=== PATIENT | male | born 1955 | race Caucasian/White ===

== ENCOUNTER 2022-11-25 14:09 | Emergency (ER) | payer OTHER, SELFPAY ==
--- NOTE | ~2022-11-25 | XR_ITS ---
EXAMINATION: XR CHEST CLINICAL INFORMATION: Coughing. Pneumonia? COMPARISON: None TECHNIQUE: Frontal view of the chest was obtained. FINDINGS: Diffuse coarse interstitial opacity. No focal consolidation or mass. No pleural effusion or pneumothorax. Suture anchors in both humeral heads. XR/XR chest 1V IMPRESSION: Diffuse coarse interstitial opacity. This could be seen from pulmonary edema, bronchitis, interstitial pneumonitis, pulmonary fibrosis, or other etiologies.
[2022-11-25 14:22] VITALS: BP 99/60; PULSE 110; RESP 18; TEMP 37.2; O2SAT 95; BMI 22.6
--- NOTE | 2022-11-25 14:25 | ECG_ITS ---
Test Reason : SOB Blood Pressure : / mmHG Vent. Rate : 102 BPM Atrial Rate : 102 BPM P-R Int : 148 ms QRS Dur : 080 ms QT Int : 326 ms P-R-T Axes : 040 029 033 degrees QTc Int : 424 ms Sinus tachycardia Otherwise normal ECG No previous ECGs available Referred By: Jorge Tejeda Electronically Signed By:KAROLYN RUDD MD
--- NOTE | 2022-11-25 14:26 | ED_ITS ---
HPI - General Adult General Chief complaint: Upper Respiratory Symptoms <LEXII Young - Last Filed: 11/25/22 18:35> Stated complaint: Cough/Difficulty breathing <LEXII Young - Last Filed: 11/25/22 18:35> Time Seen by Provider: 11/25/22 14:57 <LEXII Young - Last Filed: 11/25/22 18:35> Source: patient, family and biochemistry technologist <Julianna Nelson NP - Last Filed: 11/25/22 17:19> Mode of arrival: ambulatory <Julianna Nelson NP - Last Filed: 11/25/22 17:19> Limitations: language barrier <Julianna Nelson NP - Last Filed: 11/25/22 17:19> History of Present Illness HPI narrative: This is a 67-year-old male with a past medical history of pulmonary fi brosis, hypertension who presents to the emergency room with complaint of 5 days of coughing congestion. Patient reports he initially had 3 days of tactile temps and chills. These have resolved. He is here because he has continued cough and congestion. He was supposed to go back to [place] but felt like he was to sick to get on the plane to go home. He does report some wheezing and shortness of breath with exertion. No chest pain, leg swelling, leg pain. No history DVT or PE. Patient denies any sick contact <Julianna Nelson NP - Last Filed: 11/25/22 17:19> Related Data Home medications: Previous Rx's Medication Instructions Recorded doxycycline monohydrate 100 mg 100 mg PO BID #14 caps 11/25/22 capsule prednisone 20 mg tablet 40 mg PO DAILY #8 tabs 11/25/22 <LEXII Young - Last Filed: 11/25/22 18:35> Allergies/adverse reactions: Allergies Allergy/AdvReac Type Severity Reaction Status Date / Time No Known Allergies Allergy Verified 11/25/22 14:22 <LEXII Young - Last Filed: 11/25/22 18:35> Review of Systems Review of Systems: Yes all other systems are reviewed and are negative <JANAE Hunt Last Filed: 11/25/22 17:19> Constitutional: Constitutional: Reports no additional constitutional complaints, Denies body ache(s), Denies chills, Reports fever(s), Denies headache(s) and Denies weakness <Julianna Nelson NURSE SUBSTANCE ABUSE - Last Filed: 11/25/22 17:19> Eyes: Eyes: Reports no additional eye complaints and Denies change in vision <Julianna Nelson NURSE SUBSTANCE ABUSE - Last Filed: 11/25/22 17:19> ENT: Reports system reviewed and no additional complaints, except as documented, Denies dizziness, Denies headache(s), Denies nasal congestion, Denies nasal discharge and Denies neck pain <Julianna Nelson NURSE SUBSTANCE ABUSE - Last Filed: 11/25/22 17:19> Cardiovascular: Cardiovascular: Reports no additional cardiovascular complaints, Denies chest pain, Denies leg edema and Reports dyspnea <Julianna Nelson NURSE SUBSTANCE ABUSE - Last Filed: 11/25/22 17:19> Respiratory: Respiratory: Reports no additional respiratory complaints, Reports cough and Reports dyspnea <Julianna Nelson NURSE SUBSTANCE ABUSE - Last Filed: 11/25/22 17:19> Gastrointestinal: Gastrointestinal: Reports no additional gastrointestinal complaints, Denies abdominal pain, Denies diarrhea, Denies nausea and Denies vomiting <Julianna Nelson NURSE SUBSTANCE ABUSE - Last Filed: 11/25/22 17:19> Genitourinary: Genitourinary: Denies urinary incontinence <Julianna Nelson NURSE SUBSTANCE ABUSE - Last Filed: 11/25/22 17:19> Musculoskeletal: Musculoskeletal: Reports no additional musculoskeletal complaints, Denies back pain, Denies arthralgias, Denies joint swelling, Denies neck pain, Denies numbness and Denies tingling <Julianna Nelson NURSE SUBSTANCE ABUSE - Last Filed: 11/25/22 17:19> Integumentary/Breasts: Skin/Breast: Reports system reviewed and no additional complaints, except as docu and Denies rash <Julianna Nelson NURSE SUBSTANCE ABUSE - Last Filed: 11/25/22 17:19> Neurologic: Reports system reviewed and no additional complaints, except as documented, Denies dizziness, Denies headache(s), Denies numbness, Denies tingling and Denies weakness <Julianna Nelson NP - Last Filed: 11/25/22 17:19> [facility] Past Medical History Attestation statement: The following information was validated with the patient. <Julianna Nelson NP - Last Filed: 11/25/22 17:19> Source: old records reviewed and nursing notes reviewed <Julianna Nelson NP - Last Filed: 11/25/22 17:19> Social History Social History: Social History Advance Directives: No Advance Directives Information Provided: Yes <LEXII Young - Last Filed: 11/25/22 18:35> Physical Exam ED Vital Signs: Vital Signs - 24 hr 11/25/22 14:22 11/25/22 16:38 Temperature 99.0 F 98.1 F Pulse Rate 110 H 92 Respiratory Rate 18 20 Blood Pressure 99/60 114/51 L Pulse Oximetry 95 91 L Oxygen Delivery Method Room Air Room Air BMI result Body Mass Index 22.6 <LEXII Young - Last Filed: 11/25/22 18:35> Vital Signs - 24 hr 11/25/22 14:22 11/25/22 16:38 Temperature 99.0 F 98.1 F Pulse Rate 110 H 92 Respiratory Rate 18 20 Blood Pressure 99/60 114/51 L Pulse Oximetry 95 91 L Oxygen Delivery Method Room Air Room Air BMI result Body Mass Index 22.6 <Julianna Nelson NP - Last Filed: 11/25/22 17:19> Const General: cooperative, healthy appearing, comfortable and no acute distress <Julianna Nelson NP - Last Filed: 11/25/22 17:19> Orientation/consciousness: patient oriented x3 <Julianna Nelson NP - Last Filed: 11/25/22 17:19> Limitations: no limitations <Julianna Nelson NP - Last Filed: 11/25/22 17:19> HENMT Head: Yes normal to inspection <Julianna Nelson NP - Last Filed: 11/25/22 17:19> Ears: hearing grossly normal bilaterally and TM's normal bilaterally <Julianna Nelson NP - Last Filed: 11/25/22 17:19> General nose exam: Normal external nose present <Julianna Nelson NP - Last Filed: 11/25/22 17:19> Face and sinus: Yes normal facial exam <Julianna Nelson NP - Last Filed: 11/25/22 17:19> Mouth: Normal oral and palatal mucosa present <Julianna Nelson NP - Last Filed: 11/25/22 17:19> Teeth and gingiva: dentition normal <Julianna Nelson NP - Last Filed: 11/25/22 17:19> Throat: Yes posterior oropharynx normal, Yes tonsils normal and Yes uvula midline <Julianna Nelson NP - Last Filed: 11/25/22 17:19> Eyes General: appearance normal, both eyes and all related structures <Julianna Nelson NP - Last Filed: 11/25/22 17:19> Pupils: Equal, round and reactive pupils present <Julianna Nelson NP - Last Filed: 11/25/22 17:19> Neck Neck: Yes normal visual inspection, Yes full ROM, Yes no lymphadenopathy and Yes no meningeal signs <Julianna Nelson NP - Last Filed: 11/25/22 17:19> Chest Chest palpation & inspection: normal inspection of the chest <Julianna Nelson NP - Last Filed: 11/25/22 17:19> Resp Effort & Inspection: normal respiratory effort <Julianna Nelson NP - Last Filed: 11/25/22 17:19> Auscultation: rhonchi and wheezes <Julianna Nelson NP - Last Filed: 11/25/22 17:19> Cardio Rate: regular rate <Julianna Nelson NP - Last Filed: 11/25/22 17:19> Rhythm: regular rhythm <Julianna Nelson NP - Last Filed: 11/25/22 17:19> Peripheral pulses: Peripheral pulses 2+ throughout <Julianna Nelson NP - Last Filed: 11/25/22 17:19> GI Inspection: Yes normal to inspection <Julianna Nelson NP - Last Filed: 11/25/22 17:19> Palpation (GI): Soft to palpation and nontender <Julianna Nelson NP - Last Filed: 11/25/22 17:19> General: Yes no CVA tenderness <Julianna Nelson NP - Last Filed: 11/25/22 17:19> Back/Spine/Pelvis Back: no CVA tenderness <Julianna Nelson NP - Last Filed: 11/25/22 17:19> Skin General skin exam: no rashes or lesions noted <Julianna Nelson NP - Last Filed: 11/25/22 17:19> Neuro General: patient oriented x3, moves all extremities and no meningeal signs <Julianna Nelson NP - Last Filed: 11/25/22 17:19> Cranial nerves: Yes Equal, round and reactive pupils present <Julianna Nelson NP - Last Filed: 11/25/22 17:19> Extrem General: Yes normal to inspection, Yes no pedal edema and Yes no calf tenderness <Julianna Nelson NP - Last Filed: 11/25/22 17:19> Course Course Course Narrative: RME: patient presents to the ED for coughing and SOB and feeling sick for the past couple of days. patient states is sick. Due to age will do labs and EKG. SARS and chest xray and ordered. Patient is not toxic appearing <LEXII Young - Last Filed: 11/25/22 18:35> Reevaluation(s) Reevaluation #1: Viral testing negative. Labs unremarkable. EKG shows no ischemic changes. Chest x-ray shows pulmonary fibrosis but no acute pneumonia. Patient ambulated in the emergency room on a pulse ox with oxygen saturation greater than 92%. Plan for discharge home with prednisone course, antibiotics and albuterol. Reviewed worrisome signs symptoms of when to return to the emergency room. Comfortable plan for discharge home. <Julianna Nelson NP - Last Filed: 11/25/22 17:19> Medications Administered Discontinued Medications Generic Name Dose Route Start Last Admin Trade Name Freq PRN Reason Stop Dose Admin Albuterol Sulfate 2 puff 11/25/22 16:51 11/25/22 17:04 Albuterol Sulfate 90 Mcg 8 Gm Inhaler INHALE 11/25/22 16:52 2 puff ONCE ONE Administration Albuterol Sulfate 2.5 mg/ 0 mg 11/25/22 15:31 11/25/22 15:37 Ipratropium [place] 0.5 mg INHALE 11/25/22 15:32 1 each ONCE ONE Administration Doxycycline Monohydrate 100 mg 11/25/22 16:52 11/25/22 17:24 Doxycycline Monohydrate 100 Mg Capsule PO 11/25/22 16:53 100 mg ONCE ONE Administration Methylprednisolone Sodium Succinate 125 mg 11/25/22 15:31 11/25/22 16:15 Methylprednisolone Sod Succ 125 Mg/2 Ml Vial IVPUSH 11/25/22 15:32 125 mg ONCE ONE Administration <LEXII Young - Last Filed: 11/25/22 18:35> Medications Administered Discontinued Medications Generic Name Dose Route Start Last Admin Trade Name Freq PRN Reason Stop Dose Admin Albuterol Sulfate 2 puff 11/25/22 16:51 11/25/22 17:04 Albuterol Sulfate 90 Mcg 8 Gm Inhaler INHALE 11/25/22 16:52 2 puff ONCE ONE Administration Albuterol Sulfate 2.5 mg/ 0 mg 11/25/22 15:31 11/25/22 15:37 Ipratropium [place] 0.5 mg INHALE 11/25/22 15:32 1 each ONCE ONE Administration Doxycycline Monohydrate 100 mg 11/25/22 16:52 11/25/22 17:24 Doxycycline Monohydrate 100 Mg Capsule PO 11/25/22 16:53 100 mg ONCE ONE Administration Methylprednisolone Sodium Succinate 125 mg 11/25/22 15:31 11/25/22 16:15 Methylprednisolone Sod Succ 125 Mg/2 Ml Vial IVPUSH 11/25/22 15:32 125 mg ONCE ONE Administration <Julianna Nelson NP - Last Filed: 11/25/22 17:19> Medical Decision Making Medical Decision Making MDM Narrative: 67-year-old male with history of pulmonary fibrosis here with 5 days of cough and congestion with 3 days initially a fever which have now resolved. On arrival vital stable. Patient with coarse breath sounds and wheezing throughout. Patient to receive labs, chest x-ray, EKG, viral testing. Will give DuoNeb, Solu-Medrol and reassess <Julianna Nelson NP - Last Filed: 11/25/22 17:19> Differential Diagnosis Differential Diagnoses: The differential diagnosis associated with the presentation includes <Julianna Nelson NP - Last Filed: 11/25/22 17:19> Pneumonia PE less likely with no clinical findings concerning for DVT, no hypoxia, no tachypnea, no tachycardia <Julianna Nelson NP - Last Filed: 11/25/22 17:19> Lab Data MDM Lab Attestation statement: I reviewed the patient's lab results. <Julianna Nelson NP - Last Filed: 11/25/22 17:19> Result Diagrams: 11/25/22 14:36 11/25/22 14:36 <LEXII Young - Last Filed: 11/25/22 18:35> Labs: Lab Results 11/25/22 11/25/22 11/25/22 Range/Units 14:36 14:36 14:36 WBC 13.0 H (4.8-10.8) X10*3/uL RBC 4.39 L (4.60-5.80) X10*6/uL Hgb 13.3 L (14.0-18.0) g/dl Hct 40.2 L (42.0-52.0) % MCV 91.6 (80.0-98.0) fL MCH 30.3 (27.0-33.0) pg MCHC 33.1 (31.0-36.0) g/dl RDW 14.6 (11.0-16.0) % Plt Count 221 (160-400) X10*3/uL MPV 11.4 (9.4-12.4) fL Immature Gran % (Auto) 0.3 (0.0-0.4) % Neut % (Auto) 73.1 H (45-73) % Lymph % (Auto) 10.0 L (20-40) % [place] % (Auto) 15.5 H (2-11) % Eos % (Auto) 0.9 (0-4) % Baso % (Auto) 0.2 (0-2) % Lymph # (Auto) 1.3 (1.2-4.9) X10*3/uL [place] # (Auto) 2.0 H (0.1-1.2) X10*3/uL Eos # (Auto) 0.1 (0.0-0.4) X10*3/uL Baso # (Auto) 0.0 (0.0-0.2) X10*3/uL Abs Immat Gran (auto) 0.04 H (0.00-0.03) X10*3/uL Absolute Neuts (auto) 9.5 H (2.0-8.3) x10*3/uL Absolute Nucleated RBC 0.000 (0.0-0.012) X10*3/uL Nucleated RBC % (auto) 0.0 (0.0-0.2) /100WBC Smear Tech's Comments VERIFIED PT (10.0-13.1) SEC INR (0.9-1.1) APTT (26.0-36.4) SEC Sodium 141 (135-145) mmol/L Potassium 3.4 (3.3-5.1) mmol/L Chloride 103 (96-108) mmol/L Carbon Dioxide 25 (22-29) mmol/L Anion Gap 16 (12-20) BUN 11 (9-16) mg/dL Creatinine 1.06 (0.5-1.4) mg/dL Estim Creat Clear Calc 59.9 Estimated GFR > 60 Random Glucose 148 H (60-115) mg/dL Lactic Acid (0.5-2.0) mmol/L Calcium 8.6 (8.4-10.2) mg/dL Total Bilirubin 0.8 (0.0-1.0) mg/dL AST 52 H (5-37) U/L ALT 54 H (0-40) U/L Alkaline Phosphatase 112 (39-117) U/L Troponin I High Sens (<3.5-35.0) ng/L B-Natriuretic Peptide (<100) pg/mL Total Protein 6.7 (6.5-8.0) g/dL Albumin 3.7 (3.5-5.0) g/dL Influenza Type A (PCR) NEGATIVE (Negative) Influenza Type B (PCR) NEGATIVE (Negative) RSV RNA Qual (PCR) NEGATIVE (Negative) SARS-CoV-2 RNA (RT-PCR) NEGATIVE (Negative) 11/25/22 11/25/22 11/25/22 Range/Units 14:36 14:36 14:36 WBC (4.8-10.8) X10*3/uL RBC (4.60-5.80) X10*6/uL Hgb (14.0-18.0) g/dl Hct (42.0-52.0) % MCV (80.0-98.0) fL MCH (27.0-33.0) pg MCHC (31.0-36.0) g/dl RDW (11.0-16.0) % Plt Count (160-400) X10*3/uL MPV (9.4-12.4) fL Immature Gran % (Auto) (0.0-0.4) % Neut % (Auto) (45-73) % Lymph % (Auto) (20-40) % [place] % (Auto) (2-11) % Eos % (Auto) (0-4) % Baso % (Auto) (0-2) % Lymph # (Auto) (1.2-4.9) X10*3/uL [place] # (Auto) (0.1-1.2) X10*3/uL Eos # (Auto) (0.0-0.4) X10*3/uL Baso # (Auto) (0.0-0.2) X10*3/uL Abs Immat Gran (auto) (0.00-0.03) X10*3/uL Absolute Neuts (auto) (2.0-8.3) x10*3/uL Absolute Nucleated RBC (0.0-0.012) X10*3/uL Nucleated RBC % (auto) (0.0-0.2) /100WBC Smear Tech's Comments PT 12.8 (10.0-13.1) SEC INR 1.1 (0.9-1.1) APTT 37.0 H (26.0-36.4) SEC Sodium (135-145) mmol/L Potassium (3.3-5.1) mmol/L Chloride (96-108) mmol/L Carbon Dioxide (22-29) mmol/L Anion Gap (12-20) BUN (9-16) mg/dL Creatinine (0.5-1.4) mg/dL Estim Creat Clear Calc Estimated GFR Random Glucose (60-115) mg/dL Lactic Acid (0.5-2.0) mmol/L Calcium (8.4-10.2) mg/dL Total Bilirubin (0.0-1.0) mg/dL AST (5-37) U/L ALT (0-40) U/L Alkaline Phosphatase (39-117) U/L Troponin I High Sens 3.6 (<3.5-35.0) ng/L B-Natriuretic Peptide 18 (<100) pg/mL Total Protein (6.5-8.0) g/dL Albumin (3.5-5.0) g/dL Influenza Type A (PCR) (Negative) Influenza Type B (PCR) (Negative) RSV RNA Qual (PCR) (Negative) SARS-CoV-2 RNA (RT-PCR) (Negative) 11/25/22 Range/Units 15:58 WBC (4.8-10.8) X10*3/uL RBC (4.60-5.80) X10*6/uL Hgb (14.0-18.0) g/dl Hct (42.0-52.0) % MCV (80.0-98.0) fL MCH (27.0-33.0) pg MCHC (31.0-36.0) g/dl RDW (11.0-16.0) % Plt Count (160-400) X10*3/uL MPV (9.4-12.4) fL Immature Gran % (Auto) (0.0-0.4) % Neut % (Auto) (45-73) % Lymph % (Auto) (20-40) % [place] % (Auto) (2-11) % Eos % (Auto) (0-4) % Baso % (Auto) (0-2) % Lymph # (Auto) (1.2-4.9) X10*3/uL [place] # (Auto) (0.1-1.2) X10*3/uL Eos # (Auto) (0.0-0.4) X10*3/uL Baso # (Auto) (0.0-0.2) X10*3/uL Abs Immat Gran (auto) (0.00-0.03) X10*3/uL Absolute Neuts (auto) (2.0-8.3) x10*3/uL Absolute Nucleated RBC (0.0-0.012) X10*3/uL Nucleated RBC % (auto) (0.0-0.2) /100WBC Smear Tech's Comments PT (10.0-13.1) SEC INR (0.9-1.1) APTT (26.0-36.4) SEC Sodium (135-145) mmol/L Potassium (3.3-5.1) mmol/L Chloride (96-108) mmol/L Carbon Dioxide (22-29) mmol/L Anion Gap (12-20) BUN (9-16) mg/dL Creatinine (0.5-1.4) mg/dL Estim Creat Clear Calc Estimated GFR Random Glucose (60-115) mg/dL Lactic Acid 1.6 (0.5-2.0) mmol/L Calcium (8.4-10.2) mg/dL Total Bilirubin (0.0-1.0) mg/dL AST (5-37) U/L ALT (0-40) U/L Alkaline Phosphatase (39-117) U/L Troponin I High Sens (<3.5-35.0) ng/L B-Natriuretic Peptide (<100) pg/mL Total Protein (6.5-8.0) g/dL Albumin (3.5-5.0) g/dL Influenza Type A (PCR) (Negative) Influenza Type B (PCR) (Negative) RSV RNA Qual (PCR) (Negative) SARS-CoV-2 RNA (RT-PCR) (Negative) <LEXII Young - Last Filed: 11/25/22 18:35> Lab Results 11/25/22 11/25/22 11/25/22 Range/Units 14:36 14:36 14:36 WBC 13.0 H (4.8-10.8) X10*3/uL RBC 4.39 L (4.60-5.80) X10*6/uL Hgb 13.3 L (14.0-18.0) g/dl Hct 40.2 L (42.0-52.0) % MCV 91.6 (80.0-98.0) fL MCH 30.3 (27.0-33.0) pg MCHC 33.1 (31.0-36.0) g/dl RDW 14.6 (11.0-16.0) % Plt Count 221 (160-400) X10*3/uL MPV 11.4 (9.4-12.4) fL Immature Gran % (Auto) 0.3 (0.0-0.4) % Neut % (Auto) 73.1 H (45-73) % Lymph % (Auto) 10.0 L (20-40) % [place] % (Auto) 15.5 H (2-11) % Eos % (Auto) 0.9 (0-4) % Baso % (Auto) 0.2 (0-2) % Lymph # (Auto) 1.3 (1.2-4.9) X10*3/uL [place] # (Auto) 2.0 H (0.1-1.2) X10*3/uL Eos # (Auto) 0.1 (0.0-0.4) X10*3/uL Baso # (Auto) 0.0 (0.0-0.2) X10*3/uL Abs Immat Gran (auto) 0.04 H (0.00-0.03) X10*3/uL Absolute Neuts (auto) 9.5 H (2.0-8.3) x10*3/uL Absolute Nucleated RBC 0.000 (0.0-0.012) X10*3/uL Nucleated RBC % (auto) 0.0 (0.0-0.2) /100WBC Smear Tech's Comments VERIFIED PT (10.0-13.1) SEC INR (0.9-1.1) APTT (26.0-36.4) SEC Sodium 141 (135-145) mmol/L Potassium 3.4 (3.3-5.1) mmol/L Chloride 103 (96-108) mmol/L Carbon Dioxide 25 (22-29) mmol/L Anion Gap 16 (12-20) BUN 11 (9-16) mg/dL Creatinine 1.06 (0.5-1.4) mg/dL Estim Creat Clear Calc 59.9 Estimated GFR > 60 Random Glucose 148 H (60-115) mg/dL Lactic Acid (0.5-2.0) mmol/L Calcium 8.6 (8.4-10.2) mg/dL Total Bilirubin 0.8 (0.0-1.0) mg/dL AST 52 H (5-37) U/L ALT 54 H (0-40) U/L Alkaline Phosphatase 112 (39-117) U/L Troponin I High Sens (<3.5-35.0) ng/L B-Natriuretic Peptide (<100) pg/mL Total Protein 6.7 (6.5-8.0) g/dL Albumin 3.7 (3.5-5.0) g/dL Influenza Type A (PCR) NEGATIVE (Negative) Influenza Type B (PCR) NEGATIVE (Negative) RSV RNA Qual (PCR) NEGATIVE (Negative) SARS-CoV-2 RNA (RT-PCR) NEGATIVE (Negative) 11/25/22 11/25/22 11/25/22 Range/Units 14:36 14:36 14:36 WBC (4.8-10.8) X10*3/uL RBC (4.60-5.80) X10*6/uL Hgb (14.0-18.0) g/dl Hct (42.0-52.0) % MCV (80.0-98.0) fL MCH (27.0-33.0) pg MCHC (31.0-36.0) g/dl RDW (11.0-16.0) % Plt Count (160-400) X10*3/uL MPV (9.4-12.4) fL Immature Gran % (Auto) (0.0-0.4) % Neut % (Auto) (45-73) % Lymph % (Auto) (20-40) % [place] % (Auto) (2-11) % Eos % (Auto) (0-4) % Baso % (Auto) (0-2) % Lymph # (Auto) (1.2-4.9) X10*3/uL [place] # (Auto) (0.1-1.2) X10*3/uL Eos # (Auto) (0.0-0.4) X10*3/uL Baso # (Auto) (0.0-0.2) X10*3/uL Abs Immat Gran (auto) (0.00-0.03) X10*3/uL Absolute Neuts (auto) (2.0-8.3) x10*3/uL Absolute Nucleated RBC (0.0-0.012) X10*3/uL Nucleated RBC % (auto) (0.0-0.2) /100WBC Smear Tech's Comments PT 12.8 (10.0-13.1) SEC INR 1.1 (0.9-1.1) APTT 37.0 H (26.0-36.4) SEC Sodium (135-145) mmol/L Potassium (3.3-5.1) mmol/L Chloride (96-108) mmol/L Carbon Dioxide (22-29) mmol/L Anion Gap (12-20) BUN (9-16) mg/dL Creatinine (0.5-1.4) mg/dL Estim Creat Clear Calc Estimated GFR Random Glucose (60-115) mg/dL Lactic Acid (0.5-2.0) mmol/L Calcium (8.4-10.2) mg/dL Total Bilirubin (0.0-1.0) mg/dL AST (5-37) U/L ALT (0-40) U/L Alkaline Phosphatase (39-117) U/L Troponin I High Sens 3.6 (<3.5-35.0) ng/L B-Natriuretic Peptide 18 (<100) pg/mL Total Protein (6.5-8.0) g/dL Albumin (3.5-5.0) g/dL Influenza Type A (PCR) (Negative) Influenza Type B (PCR) (Negative) RSV RNA Qual (PCR) (Negative) SARS-CoV-2 RNA (RT-PCR) (Negative) 11/25/22 Range/Units 15:58 WBC (4.8-10.8) X10*3/uL RBC (4.60-5.80) X10*6/uL Hgb (14.0-18.0) g/dl Hct (42.0-52.0) % MCV (80.0-98.0) fL MCH (27.0-33.0) pg MCHC (31.0-36.0) g/dl RDW (11.0-16.0) % Plt Count (160-400) X10*3/uL MPV (9.4-12.4) fL Immature Gran % (Auto) (0.0-0.4) % Neut % (Auto) (45-73) % Lymph % (Auto) (20-40) % [place] % (Auto) (2-11) % Eos % (Auto) (0-4) % Baso % (Auto) (0-2) % Lymph # (Auto) (1.2-4.9) X10*3/uL [place] # (Auto) (0.1-1.2) X10*3/uL Eos # (Auto) (0.0-0.4) X10*3/uL Baso # (Auto) (0.0-0.2) X10*3/uL Abs Immat Gran (auto) (0.00-0.03) X10*3/uL Absolute Neuts (auto) (2.0-8.3) x10*3/uL Absolute Nucleated RBC (0.0-0.012) X10*3/uL Nucleated RBC % (auto) (0.0-0.2) /100WBC Smear Tech's Comments PT (10.0-13.1) SEC INR (0.9-1.1) APTT (26.0-36.4) SEC Sodium (135-145) mmol/L Potassium (3.3-5.1) mmol/L Chloride (96-108) mmol/L Carbon Dioxide (22-29) mmol/L Anion Gap (12-20) BUN (9-16) mg/dL Creatinine (0.5-1.4) mg/dL Estim Creat Clear Calc Estimated GFR Random Glucose (60-115) mg/dL Lactic Acid 1.6 (0.5-2.0) mmol/L Calcium (8.4-10.2) mg/dL Total Bilirubin (0.0-1.0) mg/dL AST (5-37) U/L ALT (0-40) U/L Alkaline Phosphatase (39-117) U/L Troponin I High Sens (<3.5-35.0) ng/L B-Natriuretic Peptide (<100) pg/mL Total Protein (6.5-8.0) g/dL Albumin (3.5-5.0) g/dL Influenza Type A (PCR) (Negative) Influenza Type B (PCR) (Negative) RSV RNA Qual (PCR) (Negative) SARS-CoV-2 RNA (RT-PCR) (Negative) <Julianna Nelson NP - Last Filed: 11/25/22 17:19> Independent Interpretation I performed an independent interpretation of an: EKG (Independently reviewed the EKG which was sinus tachycardia with rate 102, normal MI) and Plain X-Ray (Independently reviewed the chest x-ray which shows pulmonary fibrosis with no acute pneumonia) <Julianna Nelson NP - Last Filed: 11/25/22 17:19> Radiology Impression Discussion of test interpretation with radiology: I have reviewed the radiologist's reading. <Julianna Nelson NP - Last Filed: 11/25/22 17:19> Radiologist Impression: HEST CLINICAL INFORMATION: Coughing. Pneumonia? COMPARISON: None TECHNIQUE: Frontal view of the chest was obtained. FINDINGS: Diffuse coarse interstitial opacity. No focal consolidation or mass. No pleural effusion or pneumothorax. Suture anchors in both humeral heads. XR/XR chest 1V IMPRESSION: Diffuse coarse interstitial opacity. This could be seen from pulmonary edema, bronchitis, interstitial pneumonitis, pulmonary fibrosis, or other etiologies. ? <Julianna Nelson NP - Last Filed: 11/25/22 17:19> Independent Historian Clinical information obtained from an independent historian. History obtained from or confirmed by: Other (family member) <Julianna Nelson NP - Last Filed: 11/25/22 17:19> Discharge Plan Discharge Clinical Impression: Bronchitis <LEXII Young - Last Filed: 11/25/22 18:35> Patient Disposition: Home, Self-Care <LEXII Young - Last Filed: 11/25/22 18:35> Instructions: Acute Bronchitis (ED) <LEXII Young - Last Filed: 11/25/22 18:35> Additional Instructions: Aqu? la radiograf?a de t?rax muestra fibrosis pulmonar. Lu pruebas de virus son todas negativas. Hoang trabajo de laboratorio es tranquilizador. Recibi? un nebulizador y esteroides mientras estaba aqu? en la maki de emergencias. Use el inhalador en casa 2 inhalaciones cada 4 horas seg?n sea necesario. Empieza ma?niesha la prednisona y el antibi?maritza. Seguimiento con hoang m?dico de atenci?n primaria en [place] <LEXII Young - Last Filed: 11/25/22 18:35> Prescriptions: New prednisone 20 mg tablet 40 mg PO DAILY Qty: 8 0RF doxycycline monohydrate 100 mg capsule 100 mg PO BID Qty: 14 0RF <LEXII Young - Last Filed: 11/25/22 18:35> Referrals: Physician,Unknown J [Primary Care Provider] - <LEXII Young - Last Filed: 11/25/22 18:35> Interventions: ED Discharge Assessment Last Done: 11/25/22 17:27 <LEXII Young - Last Filed: 11/25/22 18:35> Discharge Date/Time: 11/25/22 17:28 <LEXII Young - Last Filed: 11/25/22 18:35> Print Language: Marshallese <LEXII Young - Last Filed: 11/25/22 18:35>
[2022-11-25 14:56] LABS: Basophils Percent Auto 0.2 % (0-2); Eosinophils Absolute Auto 0.1 X10*3/uL (0.0-0.4); Eosinophils Percent Auto 0.9 % (0-4); Hematocrit 40.2 % (42.0-52.0); Hemoglobin 13.3 g/dl (14.0-18.0); Imm Gran Abs Auto 0.04 X10*3/uL (0.00-0.03); Imm Gran Pct Auto 0.3 % (0.0-0.4); Lymphocytes Absolute Auto 1.3 X10*3/uL (1.2-4.9); MANUAL DIFF FLAG SCAN; Mean Corpuscular HGB Conc 33.1 g/dl (31.0-36.0); Mean Corpuscular Hemoglobin 30.3 pg (27.0-33.0); Mean Corpuscular Volume 91.6 fL (80.0-98.0); Mean Platelet Volume 11.4 fL (9.4-12.4); Monocytes Percent Auto 15.5 % (2-11); Neutrophils Absolute Auto 9.5 x10*3/uL (2.0-8.3); Neutrophils Percent Auto 73.1 % (45-73); Platelet Count 221 X10*3/uL (160-400); Red Blood Count 4.39 X10*6/uL (4.60-5.80); Red Cell Distribution Width 14.6 % (11.0-16.0); SCAN SMEAR FLAG 1
[2022-11-25 15:02] LABS: Alanine Aminotransferase 54 U/L (0-40); Albumin Level 3.7 g/dL (3.5-5.0); Alkaline Phosphatase 112 U/L (39-117); Anion Gap 16 (12-20); Aspartate Amino Transferase 52 U/L (5-37); Bilirubin Total 0.8 mg/dL (0.0-1.0); Blood Urea Nitrogen 11 mg/dL (9-16); Calcium 8.6 mg/dL (8.4-10.2); Carbon Dioxide 25 mmol/L (22-29); Chloride 103 mmol/L (96-108); Creatinine Clr Calc Pharmacy 59.9; Estimated Glomerular Filt Rate > 60; Glucose Random 148 mg/dL (60-115); INTERNATIONAL NORM RATIO 1.1 (0.9-1.1); Potassium 3.4 mmol/L (3.3-5.1); Prothrombin Time 12.8 SEC (10.0-13.1); Sodium 141 mmol/L (135-145); Total Protein 6.7 g/dL (6.5-8.0)
[2022-11-25 15:06] LABS: B Type Natriuretic Peptide 18 pg/mL (<100)
[2022-11-25 15:09] LABS: Troponin-I High Sensitivity 3.6 ng/L (<3.5-35.0)
[2022-11-25 15:19] LABS: SLIDE REVIEW VERIFIED
[2022-11-25 15:25] LABS: Influenza A PCR NEGATIVE (Negative); Influenza B PCR NEGATIVE (Negative); Resp Syncy Virus RNA Qual PCR NEGATIVE (Negative); SARS COV2 PCR INHOUSE NEGATIVE (Negative)
[2022-11-25 16:15] LABS: Lactic Acid 1.6 mmol/L (0.5-2.0)
[2022-11-25] MEDS: methylPREDNISolone Sod Succ 125 MG/2 ML VIAL IVPUSH (16:15)
[2022-11-25 16:38] VITALS: BP 114/51; PULSE 92; RESP 20; TEMP 36.7; O2SAT 91
[2022-11-25] MEDS: Albuterol Sulfate 90 MCG 8 GM INHALER 2 PUFF INHALE (17:04)
[2022-11-25] MEDS: Doxycycline Monohydrate 100 MG CAPSULE PO (17:24)
== END 2022-11-25 17:28 | disposition home or self-care (01) ==
PROVIDERS: Nurse Practitioner Family; Physician Assistant; Emergency Provider Internal Medicine
DX: J40 Bronchitis, not specified as acute or chronic (principal); R05.9 Cough, unspecified; R06.02 Shortness of breath; I10 Essential (primary) hypertension; Z79.899 Other long term (current) drug therapy; Z20.822 Contact with and (suspected) exposure to COVID-19; Z20.828 Contact with and (suspected) exposure to other viral communicable diseases
CPT/HCPCS: 0241U; 36415; 71045; 80053; 83605; 83880; 84484; 85025; 85610; 85730; 87040; 93005; 94640; 96374; 99284; J2930